=== PATIENT | female | born 1935 | race Caucasian/White ===

== ENCOUNTER 2016-05-01 09:58 | Observation (INO) | payer OTHER, MEDICARE ==
[~2016-05-01] VITALS: Ht 157.5 cm; Wt 73.2 kg
[~2016-05-01 09:58] MED LIST: ANTIVERT25 MG PO; ASPIR 8181 M1 PO; ASPIRIN325 MG PO; CLONIDINE HCL0.2 MG PO; CO Q-10200 MG PO; CRESTOR20 MG PO; CRESTOR40 MG PO; FAMOTIDINE20 MG PO; HYDROCHLOROTH12.5 M3 PO; LISINOPRIL10 MG PO; METOPROLOL SUCC25 MG PO; SYNTHROID100 MCG PO; ULTRACET1 TABLET PO; ULTRAM50 MG PO
[2016-05-01 11:07] LABS: EOSINOPHIL (%) 0.8 % (0-5); EOSINOPHIL COUNT 0.1 K/uL (0-0.3); HEMATOCRIT 40.3 % (36.0-46.0); LYMPHOCYTE COUNT 1.3 K/uL (1.0-2.8); MCH 29.8 PG (29.0-34.0); MCV 87.6 FL (83-99); MEAN PLAT.VOLUME 11.1 uM^3 (9.5-12.4); MONOCYTE (%) 10.9 % (3-12); MONOCYTE COUNT 0.7 K/uL (0-0.8); NEUTROPHIL (%) 67.3 % (45-76); NEUTROPHIL COUNT 4.1 K/uL (1.8-6.4); PLATELET COUNT 202 K/uL (156-360); RBC DIS.WIDTH-CV 13.3 % (11.8-14.6); RBC DIS.WIDTH-SD 42.2 % (39-53); WHITE BLOOD COUNT 6.1 K/uL (4.1-10.2)
[2016-05-01 11:18] LABS: CHLORIDE 105 mEq/L (99-109); D-DIMER ELISA 1.07 mg/L FEU (< 0.57); POTASSIUM 4.7 mEq/L (3.7-5.4); SODIUM 137 mEq/L (136-147)
[2016-05-01 11:20] LABS: GLUCOSE 107 mg/dL (70-99)
[2016-05-01 11:22] LABS: ANION GAP 7 MEQ/L (2-14); TOTAL BILIRUBIN 0.4 mg/dL (0.0-1.0)
[2016-05-01 11:24] LABS: ALKALINE PHOSPHATASE 59 IU/L (3-129); GFR ESTIMATE (CALCULATED) > 59 mL/min/
[2016-05-01 11:25] LABS: UREA NITROGEN (BUN) 12 mg/dL (9-23)
[2016-05-01 11:33] LABS: TROP-I INTERPRETATION NEGATIVE; TROPONIN-I < 0.01 ng/mL (0.0-0.30)
[2016-05-01] MEDS ORDERED: LISINOPRIL20 MG PO ×2 (17:12)
[2016-05-01] MEDS ORDERED: AMLODIPINE BES2.5 MG PO (17:13)
[2016-05-01] MEDS ORDERED: LORAZEPAM0.5 MG PO (17:15)
[2016-05-01] MEDS ORDERED: ACETAMINOPHN-T1 EACH PO (17:15)
[2016-05-01] MEDS ORDERED: ZADITOR 0.100 DROP/5 BOTH EYES (17:16)
[2016-05-01 18:54] LABS: TROP-I INTERPRETATION NEGATIVE; TROPONIN-I 0.01 ng/mL (0.0-0.30)
[2016-05-01 20:00] VITALS: BP 155/72
[2016-05-02] VITALS: BP 118/68
[2016-05-02 00:53] LABS: TROP-I INTERPRETATION NEGATIVE; TROPONIN-I < 0.01 ng/mL (0.0-0.30)
[2016-05-02 04:23] VITALS: BP 109/57
[2016-05-02 07:42] VITALS: BP 177/74
== END 2016-05-02 12:48 | disposition home or self-care (01) ==
LOC: EME 09:58 → EDOF 16:45 → 5WEST 16:45
PROVIDERS: Emergency Medicine; Hospitalist
DX: R07.9 Chest pain, unspecified (principal); R06.09 Other forms of dyspnea; I25.10 Atherosclerotic heart disease of native coronary artery without angina pectoris; Z95.1 Presence of aortocoronary bypass graft; I10 Essential (primary) hypertension; I48.0 Paroxysmal atrial fibrillation; E78.5 Hyperlipidemia, unspecified; E03.9 Hypothyroidism, unspecified; Z82.49 Family history of ischemic heart disease and other diseases of the circulatory system; Z82.0 Family history of epilepsy and other diseases of the nervous system
CPT/HCPCS: 71010; 71275; 80053; 81003; 83880; 84484; 85025; 85379; 93005; 99281; 99285; G0378; J1650

== ENCOUNTER 2016-10-05 08:21 | Emergency (ER) | payer OTHER, MEDICARE ==
[~2016-10-05] VITALS: Ht 157.5 cm; Wt 72.7 kg
[~2016-10-05 08:21] MED LIST changes: +ACETAMINOPHN-T1 EACH PO; +AMLODIPINE BES2.5 MG PO; +LISINOPRIL20 MG PO; +LORAZEPAM0.5 MG PO; +ZADITOR 0.100 DROP/5 BOTH EYES
[2016-10-05 12:17] VITALS: BP 130/69
== END 2016-10-05 12:19 | disposition home or self-care (01) ==
LOC: EME 08:21
DX: S72.111 Displaced fracture of greater trochanter of right femur (principal); X58.XXXD Exposure to other specified factors, subsequent encounter; M25.551 Pain in right hip; W06.XXXA Fall from bed, initial encounter; I10 Essential (primary) hypertension; E03.9 Hypothyroidism, unspecified; Z95.1 Presence of aortocoronary bypass graft; Z85.828 Personal history of other malignant neoplasm of skin; Z79.82 Long term (current) use of aspirin; Z87.891 Personal history of nicotine dependence
CPT/HCPCS: 73502; 73700; 99281; 99284

== ENCOUNTER 2017-06-14 08:11 | Emergency (ER) | payer OTHER, MEDICARE ==
[~2017-06-14] VITALS: Ht 157.5 cm; Wt 80.9 kg
[2017-06-14 09:23] LABS: HEMATOCRIT 39.9 % (36.0-46.0); HEMOGLOBIN 13.5 G/DL (11.9-15.5); MCH 30.3 PG (29.0-34.0); MCHC 33.8 G/DL (30.0-36.0); MCV 89.7 FL (83-99); PLATELET COUNT 215 K/uL (156-360); RBC DIS.WIDTH-CV 12.7 % (11.8-14.6); RED BLOOD COUNT 4.45 M/uL (3.80-5.20); WHITE BLOOD COUNT 7.3 K/uL (4.1-10.2)
[2017-06-14 09:33] LABS: CHLORIDE 103 mEq/L (99-109); POTASSIUM 4.8 mEq/L (3.7-5.4); SODIUM 138 mEq/L (136-147)
[2017-06-14 09:35] LABS: GLUCOSE 120 mg/dL (70-99)
[2017-06-14 09:39] LABS: CREATININE 0.8 mg/dL (0.6-1.3); GFR ESTIMATE (CALCULATED) > 59 mL/min/
[2017-06-14 09:40] LABS: UREA NITROGEN (BUN) 15 mg/dL (9-23)
[2017-06-14 09:45] LABS: TROP-I INTERPRETATION NEGATIVE; TROPONIN-I < 0.01 ng/mL (0.0-0.30)
[2017-06-14 10:12] LABS: APPEARANCE CLOUDY ((CLEAR)); BILIRUBIN NEGATIVE; BLOOD TRACE; COLOR YELLOW ((YELLOW)); GLUCOSE (STRIP) NEGATIVE; KETONES NEGATIVE; LEUKOCYTES NEGATIVE; NITRITE NEGATIVE; PROTEIN (STRIP) NEGATIVE; UROBILINOGEN 0.2 MG/DL (0.2-1.0)
[2017-06-14 10:16] LABS: BACTERIA RARE /HPF; EPITHELIAL CELLS RARE /HPF; MUCUS NONE SEEN /LPF; UCUL ADDED? NO; WHITE BLOOD CELLS 0-5 /HPF (0-5)
[2017-06-14 10:17] LABS: AMORPHOUS PHOSPHATE CRYSTALS 2+
[2017-06-14] MEDS ORDERED: TRAMADOL HCL50 MG PO (15:05)
[2017-06-14 15:09] VITALS: BP 156/71
== END 2017-06-14 15:13 | disposition home or self-care (01) ==
LOC: EME 08:11
PROVIDERS: Emergency Medicine
DX: S73.101A Unspecified sprain of right hip, initial encounter (principal); X50.1XXA Overexertion from prolonged static or awkward postures, initial encounter; I10 Essential (primary) hypertension; K21.9 Gastro-esophageal reflux disease without esophagitis; E03.9 Hypothyroidism, unspecified; I25.2 Old myocardial infarction; F41.9 Anxiety disorder, unspecified; Z79.82 Long term (current) use of aspirin; Z87.891 Personal history of nicotine dependence; Z95.1 Presence of aortocoronary bypass graft; Z98.890 Other specified postprocedural states; Z90.710 Acquired absence of both cervix and uterus; Z85.828 Personal history of other malignant neoplasm of skin; Z88.1 Allergy status to other antibiotic agents; Z88.2 Allergy status to sulfonamides; Z88.0 Allergy status to penicillin; Z88.5 Allergy status to narcotic agent; Z88.8 Allergy status to other drugs, medicaments and biological substances
CPT/HCPCS: 73502; 73700; 80048; 81003; 84484; 85027; 93005; 99281; 99285; G8987 CK; G8988 GO CH; J3010; J7030